=== PATIENT | female | born 1980 | race American Indian/Alaskan Native ===

== ENCOUNTER 2020-11-30 12:58 | Emergency (ER) | payer OTHER ==
[2020-11-30 14:18] VITALS: BP 130/82
--- NOTE | 2020-11-30 15:22 | XRay Report ---
CHEST 2 VIEWS INDICATION: cough. COMPARISON: None FINDINGS: Support devices: None. Heart: Within normal limits. Lungs/pleura: No acute air space or interstitial disease. No pneumothorax. Additional findings: None. IMPRESSION: No acute findings. Signer Name: Gomez Kamara Jr, MD Signed: 11/30/2020 3:18 PM Workstation Name: [id number]
--- NOTE | 2020-11-30 15:34 | Emergency Department Report ---
Upper Respiratory HPI - HPI Chief Complaint: Upper Respiratory Infection Stated Complaint: COUGH/FLU LIKE SX Time Seen by Provider: 11/30/20 14:34 Duration: 3 Days URI Symptoms: Rhinorrhea: Yes, Sore Throat: No, Ear Pain: No, Cough: Yes, Shortness of Breath: No, Sick Contacts: No, Unable to Take Fluids: No, Urine Output Abnormal: No, Listless Behavior: No Other History: This is a 40-year-old female nontoxic, well nourished in appearance, no acute signs of distress presents to the ED with c/o of productive cough, body aches, rhinorrhea, nasal congestion x3 days. Patient describes productive cough as yellow mucus production. Patient denies any sick contacts. Patient denies any recent travels, long car, recent hospital stays. Patient denies any calf pain or calf tenderness. Patient denies any chest pain, short of breath, fever, chills, nausea, vomiting, hemoptysis, numbness, tingling, headache or stiff neck. Patient stated allergies to codeine and acetaminophen. - Home Meds and Allergies Home Medications: Previous Rx's Medication Instructions Recorded Last Taken Type Benzonatate [Tessalon Perles] 100 mg PO Q12H PRN #12 capsule 11/30/20 Unknown Rx Allergies/Adverse Reactions: Allergies Allergy/AdvReac Type Severity Reaction Status Date / Time acetaminophen Allergy Itching Verified 11/30/20 14:15 [From Tylenol-Codeine #3] codeine Allergy Itching Verified 11/30/20 14:15 [From Tylenol-Codeine #3] ED Review of Systems ROS: Stated complaint: COUGH/FLU LIKE SX Other details as noted in HPI Comment: All other systems reviewed and negative Constitutional: denies: chills, fever Eyes: denies: eye pain, eye discharge, vision change ENT: congestion. denies: ear pain, throat pain Respiratory: cough. denies: shortness of breath, wheezing Cardiovascular: denies: chest pain, palpitations Endocrine: no symptoms reported Gastrointestinal: denies: abdominal pain, nausea, diarrhea Genitourinary: denies: urgency, dysuria, discharge Musculoskeletal: denies: back pain, joint swelling, arthralgia Skin: denies: rash, lesions Neurological: denies: headache, weakness, paresthesias Psychiatric: denies: anxiety, depression Hematological/Lymphatic: denies: easy bleeding, easy bruising ED Past Medical Hx - Past Medical History Hx Hypertension: Yes Hx Congestive Heart Failure: Yes - Surgical History Hx Cholecystectomy: Yes Additional Surgical History: CYST ON OVARY - Medications Home Medications: Home Medications Medication Instructions Recorded Confirmed Last Taken Type Benzonatate [Tessalon Perles] 100 mg PO Q12H PRN #12 capsule 11/30/20 Unknown Rx ED Bronchiolitis Physical Exam - Exam General: Vital signs noted. No distress. Alert and acting appropriately. Neurologic: Alert and oriented, no deficits. Musculoskeletal: Unremarkable. ED Bronchiolitis Tests - Testing Testing: CXR: Normal/Negative ED Physical Exam - General Limitations: No Limitations General appearance: alert, in no apparent distress - Head Head exam: Present: atraumatic, normocephalic - Eye Eye exam: Present: normal appearance - Neck Neck exam: Present: normal inspection, full ROM. Absent: tenderness, meningismus, lymphadenopathy - Respiratory Respiratory exam: Present: normal lung sounds bilaterally. Absent: respiratory distress, wheezes, rales, rhonchi, stridor, chest wall tenderness, accessory muscle use, decreased breath sounds, prolonged expiratory - Cardiovascular Cardiovascular Exam: Present: regular rate, normal rhythm, normal heart sounds. Absent: bradycardia, tachycardia, irregular rhythm, systolic murmur, diastolic murmur, rubs, gallop - GI/Abdominal GI/Abdominal exam: Present: soft. Absent: distended, tenderness - Extremities Exam Extremities exam: Present: full ROM - Back Exam Back exam: Present: full ROM - Neurological Exam Neurological exam: Present: alert, oriented X3, normal gait - Psychiatric Psychiatric exam: Present: normal affect, normal mood - Skin Skin exam: Present: warm, dry, intact, normal color. Absent: rash ED Course Vital Signs 11/30/20 14:16 Temperature 98.1 F Pulse Rate 89 Respiratory 20 Rate Blood Pressure 130/82 [Right] O2 Sat by Pulse 98 Oximetry - Reevaluation(s) Reevaluation #1: 11/30/20 15:28 Patient is speaking in full sentences with no signs of distress noted. ED Medical Decision Making - Radiology Data Referring Physician: PETRA EDUARDO Patient Name: MARLI AC Date of : 1995-06-18 Sex: Female Report Date: 2020-11-30 Report Status: Finalized [facility] [address] [place] [address] Ultrasound Report Signed Patient: MARLI AC MR #: [id number] : 06/18/1995 Acct:[id number] Age/Sex: 25 / F ADM Date: 11/30/20 Loc: ED Attending Dr: Ordering Physician: PETRA EDUARDO NP Date of Service: 11/30/20 Procedure(s): US OB >= 14 weeks Fetus Accession Number(s): [id number] cc: PETRA EDUARDO NP ULTRASOUND OBSTETRIC REASON FOR EXAM: vaginal bleeding with pelvic pain TECHNIQUE: Transabdominal and transvaginal ultrasound was performed to evaluate a first trimester . COMPARISON: None available. FINDINGS: FINDINGS: The pole, yolk sac, and gestational sac are normal in appearance. Maud-rump length: 36.6 mm. This corresponds with a gestational age of 10 weeks 4 days. heart rate: 179 bpm Perigestational hemorrhage: There is perigestational hemorrhage involving less than half the circumference of the gestational sac. This measures 3.3 x 1.6 cm. MATERNAL FINDINGS: The uterus measures 13.4 x 8.0 x 8.2 cm. The right ovary demonstrates a normal sonographic appearance. The left ovary demonstrates a normal sonographic appearance. Cul-de-sac: There is no free fluid. IMPRESSION: Viable intrauterine . Gestational age is 10 weeks 4 days by ultrasound. Recommend clinical screening and ultrasound follow-up in the second trimester to screen for anomalies. There is a small perigestational hemorrhage which may account for vaginal bleeding. Signer Name: Sheree Lucas MD Signed: 11/30/2020 1:06 PM Workstation Name: [id number] Transcribed By: NORBERT Dictated By: SHEREE LUCAS MD Electronically Authenticated By: SHEREE LUCAS MD Signed Date/Time: 11/30/20 1306 DD/ 1244 TD/TT: - Medical Decision Making This is a 40-year-old female that presents with viral bronchitis with possible suspected Covid. Patient is stable and was examined by me. Chest x-ray has been obtained and dictated by radiologist with normal exam. Patient is notified of x-ray results with no questions noted. Patient does meet clinical concerns of COVID-19 and patient was instructed and educated on signs and symptoms and to self quarantine and seek medical attention as soon as possible if symptoms worsen. Patient was instructed to increase hydration, rest and take Motrin for fever episodes. Vitals stable. Patient is nonfebrile and normal heart rate. Patient was instructed Follow-up with a primary care doctor in 3-5 days or if symptoms worsen and continue return to emergency room as soon as possible. At time time of discharge, the patient does not seem toxic or ill in appearance. No acute signs of distress noted. Patient agrees to discharge treatment plan of care. No further questions noted by the patient.nt. Critical care attestation.: If time is entered above; I have spent that time in minutes in the direct care of this critically ill patient, excluding procedure time. ED Disposition Clinical Impression: Viral bronchitis, Suspected COVID-19 virus infection Disposition: - TO HOME OR SELFCARE Is pt being admited?: No Does the pt Need Aspirin: No Condition: Stable Instructions: Chronic Bronchitis (ED), Acute Bronchitis, Adult, [id number], COVID-19 Frequently Asked Questions, COVID-19 Additional Instructions: Follow-up with a primary care doctor in 3-5 days or if symptoms worsen and continue return to emergency room as soon as possible. As educated and instructed to you must self quarantine yourself and people that you have been in close contact with similar symptoms for the next 14 days. Please see your nearest health department or primary care doctor that you are referred to for COVID testing. Increased rest and hydration. Prescriptions: Benzonatate [Tessalon Perles] 100 mg PO Q12H PRN #12 capsule PRN Reason: Cough Referrals: PRIMARY CARE, [Referring] - 3-5 Days ELY HENRIQUEZ MD [Staff Physician] - 3-5 Days Time of Disposition: 15:37
== END 2020-11-30 16:51 | disposition home or self-care (01) ==
LOC: ED 12:58
DX: J20.8 Acute bronchitis due to other specified organisms (principal); Z20.822 Contact with and (suspected) exposure to COVID-19; I10 Essential (primary) hypertension; Z90.49 Acquired absence of other specified parts of digestive tract; Z79.899 Other long term (current) drug therapy; Z88.8 Allergy status to other drugs, medicaments and biological substances
CPT/HCPCS: 71046; 99283

== ENCOUNTER 2021-01-10 22:20 | Emergency (ER) | payer OTHER ==
[2021-01-10] MEDS ORDERED: IBUPROFEN 600 MG TAB PO ONE (23:11)
[2021-01-10] MEDS ORDERED: BUTALB/ACETAMINOPHEN/CAFFEINE TAB PO ONE (23:11)
--- NOTE | 2021-01-11 00:33 | Cat Scan Report ---
CT HEAD WITHOUT CONTRAST INDICATION: headache, dizziness. TECHNIQUE: All CT scans at this location are performed using CT dose reduction for ALARA by means of automated e xposure control. COMPARISON: None available. FINDINGS: HEMORRHAGE: None. EXTRA-AXIAL SPACES: Normal in size and morphology for the patient's age. VENTRICULAR SYSTEM: Normal in size and morphology for the patient's age. BRAIN PARENCHYMA: No acute findings. MIDLINE SHIFT OR HERNIATION: None. ORBITS: Normal as visualized. SOFT TISSUES OF HEAD: Normal. CALVARIUM: Normal. VISUALIZED PARANASAL SINUSES AND MASTOID AIR CELLS: Clear. ADDITIONAL FINDINGS: None. IMPRESSION: 1. No acute intracranial abnormality. Signer Name: Jose Maria Rossi MD Signed: 01/11/2021 12:29 AM Workstation Name: [id number]
[2021-01-11 00:41] VITALS: BP 135/83
[2021-01-11] MEDS ORDERED: BUTALB/ACETAMINOPHEN/CAFFEINE TAB PO ONE (00:45)
[2021-01-11] MEDS ORDERED: IBUPROFEN 600 MG TAB PO ONE (00:45)
[2021-01-11 00:51] LABS: Basophils % (Auto) 0.6 % (0.0-1.8); Eosinophils # (Auto) 0.2 K/mm3 (0.0-0.4); Eosinophils % (Auto) 2.7 % (0.0-4.3); Hematocrit 40.7 % (30.3-42.9); Lymphocytes # (Auto) 3.6 K/mm3 (1.2-5.4); Lymphocytes % (Auto) 44.2 % (13.4-35.0); Mean Corpuscular HGB Conc 34 % (30-34); Mean Corpuscular Volume 93 fl (79-97); Monocytes # (Auto) 0.6 K/mm3 (0.0-0.8); Monocytes % (Auto) 7.2 % (0.0-7.3); Platelet Count 245 K/mm3 (140-440); Red Blood Count 4.39 M/mm3 (3.65-5.03); Red Cell Distribution Width 14.2 % (13.2-15.2)
[2021-01-11 01:20] LABS: Alanine Aminotransferase 17 units/L (7-56); Albumin 4.5 g/dL (3.9-5); BUN/Creatinine Ratio 14; Blood Urea Nitrogen 11 mg/dL (7-17); Hemolysis Index 10
[2021-01-11 01:26] LABS: Erythrocyte Sedimentation Rate 6 mm/Hr (0-20)
--- NOTE | 2021-01-11 02:16 | Emergency Department Report ---
ED Headache HPI - General Chief Complaint: Headache Stated Complaint: BLURRY VISION Source: patient Exam Limitations: no limitations - History of Present Illness Initial Comments: Patient is a 40-year-old -Prydeinig female with history of hypertension and CHF who presents to the ED with complaint of acute onset persistent severe right frontal and retro-orbital headache radiating to the right temporal area with blurry vision and lightheadedness for the last 1 week, worse in the last 2 days. Patient states that she suspected that maybe her blood pressure may have been elevated. Patient states that the pain is pressure-like, sharp and constant. Patient denies dizziness, syncope, seizures, chest pain, shortness of breath, neck pain, traumatic injury, fall, fever or chills, numbness and tin gling of the face, vision loss, neck pain, sore throat, nasal and sinus congestion, nausea and vomiting. Timing/Duration: 1 week Quality: severe Head Injury Location: frontal (right retro-orbital ), temporal (right) Recent Head Trauma: no recent headache/trauma Associated Symptoms: denies symptoms, sinus infection, vision changes (blurry). denies: confusion, fatigue, facial pain, fever/chills, flushing, loss of consciousness, nausea/vomiting, nasal congestion, nasal drainage, numbness in legs/feet, seizures, stiff neck Allergies/Adverse Reactions: Allergies acetaminophen [From Tylenol-Codeine #3] Allergy (Verified 11/30/20 14:15) Itching codeine [From Tylenol-Codeine #3] Allergy (Verified 11/30/20 14:15) Itching metformin Allergy (Verified 01/11/21 00:47) Vomiting Home Medications: Ambulatory Orders Benzonatate [Tessalon Perles] 100 mg PO Q12H PRN #12 capsule 11/30/20 Butalb/Acetamin/Caff 50-325-40 [Fioricet 50-325-40] 1 - 2 tab PO Q6HR PRN #15 tab 01/11/21 Ibuprofen [Motrin] 800 mg PO Q8HR PRN #30 tablet 01/11/21 Ondansetron [Zofran Odt] 4 mg PO Q6HR PRN #15 tab.rapdis 01/11/21 ED Review of Systems ROS: Stated complaint: BLURRY VISION Other details as noted in HPI Constitutional: denies: chills, fever Eyes: denies: eye pain, eye discharge, vision change ENT: other (Right frontal sinus tenderness and pressure). denies: ear pain, throat pain Respiratory: denies: cough, shortness of breath, wheezing Cardiovascular: denies: chest pain, palpitations Endocrine: no symptoms reported Gastrointestinal: denies: abdominal pain, nausea, vomiting, diarrhea Genitourinary: denies: urgency, dysuria, discharge Musculoskeletal: denies: back pain, joint swelling, arthralgia Skin: denies: rash, lesions Neurological: headache. denies: weakness, paresthesias Psychiatric: denies: anxiety, depression Hematological/Lymphatic: denies: easy bleeding, easy bruising ED Past Medical Hx - Past Medical History Previous Medical History?: Yes Hx Hypertension: Yes Hx Congestive Heart Failure: Yes - Surgical History Past Surgical History?: Yes Hx Cholecystectomy: Yes Additional Surgical History: CYST ON OVARY - Medications Home Medications: Home Medications Medication Instructions Recorded Confirmed Last Taken Type Benzonatate [Tessalon Perles] 100 mg PO Q12H PRN #12 capsule 11/30/20 Unknown Rx Butalb/Acetamin/Caff 50-325-40 1 - 2 tab PO Q6HR PRN #15 tab 01/11/21 Unknown Rx [Fioricet 50-325-40] Ibuprofen [Motrin] 800 mg PO Q8HR PRN #30 tablet 01/11/21 Unknown Rx Ondansetron [Zofran Odt] 4 mg PO Q6HR PRN #15 tab.rapdis 01/11/21 Unknown Rx ED Physical Exam - General Limitations: No Limitations General appearance: alert, in no apparent distress - Head Head exam: Present: atraumatic, normocephalic, normal inspection - Eye Eye exam: Present: normal appearance, PERRL, EOMI Pupils: Present: normal accommodation - ENT ENT exam: Present: normal orophraynx, mucous membranes moist, TM's normal bilaterally, normal external ear exam, other (Palpable right frontal and right temporal scalp tenderness) - Neck Neck exam: Present: normal inspection, full ROM - Respiratory Respiratory exam: Present: normal lung sounds bilaterally. Absent: respiratory distress, wheezes, rales, rhonchi, stridor, chest wall tenderness, accessory muscle use, prolonged expiratory - Cardiovascular Cardiovascular Exam: Present: regular rate, normal rhythm, normal heart sounds. Absent: systolic murmur, diastolic murmur, rubs, gallop - GI/Abdominal GI/Abdominal exam: Present: soft, normal bowel sounds. Absent: tenderness, guarding, rebound, hyperactive bowel sounds, hypoactive bowel sounds, organomegaly - Extremities Exam Extremities exam: Present: normal inspection, full ROM, normal capillary refill - Back Exam Back exam: Present: normal inspection, full ROM. Absent: tenderness, CVA tenderness (R), CVA tenderness (L), muscle spasm, paraspinal tenderness, vertebral tenderness - Neurological Exam Neurological exam: Present: alert, oriented X3, CN II-XII intact, normal gait, reflexes normal - Psychiatric Psychiatric exam: Present: normal affect, normal mood - Skin Skin exam: Present: warm, dry, intact, normal color. Absent: rash ED Course Vital Signs 01/11/21 01/11/21 00:39 00:55 Temperature 98.2 F Pulse Rate 61 Respiratory 17 20 Rate Blood Pressure 135/83 O2 Sat by Pulse 96 Oximetry ED Medical Decision Making - Lab Data Result diagrams: 01/10/21 23:39 01/10/21 23:39 - Radiology Data Radiology results: report reviewed, [place] [id number] Cat Scan Report Signed Patient: JOSE OGLESBY MR #: [id number] : 1980 Acct:[id number] Age/Sex: 40 / F ADM Date: 01/10/21 Loc: ED Attending Dr: Ordering Physician: JENNIFFER RODRIGUES Date of Service: 01/10/21 Procedure(s): CT head/brain wo con Accession Number(s): [id number] cc: JENNIFFER RODRIGUES CT HEAD WITHOUT CONTRAST INDICATION: headache, dizziness. TECHNIQUE: All CT scans at this location are performed using CT dose reduction for ALARA by means of automated exposure control. COMPARISON: None available. FINDINGS: HEMORRHAGE: None. EXTRA-AXIAL SPACES: Normal in size and morphology for the patient's age. VENTRICULAR SYSTEM: Normal in size and morphology for the patient's age. BRAIN PARENCHYMA: No acute findings. MIDLINE SHIFT OR HERNIATION: None. ORBITS: Normal as visualized. SOFT TISSUES OF HEAD: Normal. CALVARIUM: Normal. VISUALIZED PARANASAL SINUSES AND MASTOID AIR CELLS: Clear. ADDITIONAL FINDINGS: None. IMPRESSION: 1. No acute intracranial abnormality. Signer Name: Jose Maria Rossi MD Signed: 01/11/2021 12:29 AM Workstation Name: [id number] Transcribed By: MASTER Dictated By: Jose Maria Rossi MD Electronically Authenticated By: Jose Maria Rossi MD Signed Date/Time: 01/11/2128 DD/ TD/TT: - Medical Decision Making This is a 40-year-old -Prydeinig female with history of hypertension and CHF who presents to the ED with complaint of acute onset persistent severe right frontal and retro-orbital headache radiating to the right temporal area with blurry vision and lightheadedness for the last 1 week, worse in the last 2 days. Patient states that she suspected that maybe her blood pressure may have been elevated. Patient states that the pain is pressure-like, sharp and constant. In the ED, patient is alert and oriented x3 and is not in any distress but anxious and is hemodynamically stable. Head CT scan without contrast showed no acute intracranial abnormalities or hemorrhage. Lab test results were reviewed and are all nonactionable. Patient was treated for headache and on reevaluation, patient's pain is well controlled medication. Patient will discharge home on pain medications and advised to follow-up with her primary care physician in 5 3 to 5 days for reevaluation or return to the ED immediately if symptoms get worse. - Differential Diagnosis Sinusitis; tension headache; cluster headache; GCA; migraine headache Critical care attestation.: If time is entered above; I have spent that time in minutes in the direct care of this critically ill patient, excluding procedure time. ED Disposition Clinical Impression: Migraine headache without aura Qualifiers: Status migrainosus presence: without status migrainosus Intractability: not intractable Qualified Code(s): G43.009 - Migraine without aura, not intractable, without status migrainosus Disposition: -01 TO HOME OR SELFCARE Is pt being admited?: No Does the pt Need Aspirin: No Condition: Stable Instructions: Migraine Headache, Qyry-pa-Cahi Additional Instructions: All lab test results were reviewed and are all nonactionable. The head CT scan without contrast showed no acute intracranial abnormalities or hemorrhage. Therefore your symptoms are likely due to migraine headache without aura or tension type headache. Therefore take medications with food, drink plenty of fluids and follow-up with your primary care physician in 7 to 10 days for reev aluation. Return to the ED immediately if symptoms get worse. Prescriptions: Butalb/Acetamin/Caff 50-325-40 [Fioricet 50-325-40] 1 - 2 tab PO Q6HR PRN #15 tab PRN Reason: Headache Ibuprofen [Motrin] 800 mg PO Q8HR PRN #30 tablet PRN Reason: Pain , Severe (7-10) Ondansetron [Zofran Odt] 4 mg PO Q6HR PRN #15 tab.rapdis PRN Reason: Nausea Referrals: ELY HENRIQUEZ MD [Staff Physician] - 3-5 Days Forms: Work/School Release Form(ED) Time of Disposition: 02:19 Print Language: MAURITIAN
== END 2021-01-11 02:30 | disposition home or self-care (01) ==
LOC: ED 22:20
DX: G43.009 Migraine without aura, not intractable, without status migrainosus (principal); I11.0 Hypertensive heart disease with heart failure; I50.9 Heart failure, unspecified; Z90.49 Acquired absence of other specified parts of digestive tract; Z79.899 Other long term (current) drug therapy; Z88.6 Allergy status to analgesic agent; Z88.8 Allergy status to other drugs, medicaments and biological substances; Z98.890 Other specified postprocedural states
CPT/HCPCS: 36415; 70450; 80053; 85025; 85652

== ENCOUNTER 2022-02-17 08:19 | Emergency (ER) | payer SELFPAY ==
[2022-02-17] MEDS ORDERED: KETOROLAC 10 MG TAB PO ONE (11:57)
[2022-02-17 12:38] VITALS: BP 118/67
--- NOTE | 2022-02-17 14:21 | Vascular Lab Report ---
DUPLEX DOPPLER UPPER EXTREMITY VENOUS, LEFT INDICATION / CLINICAL INFORMATION: pain and swelling. TECHNIQUE: Duplex doppler imaging was performed through the veins of the left upper extremity using v enous compression and other maneuvers. COMPARISON: None available. FINDINGS: LEFT INTERNAL JUGULAR VEIN: Negative. LEFT SUBCLAVIAN VEIN: Negative. LEFT AXILLARY VEIN: Negative. LEFT BRACHIAL VEIN: Negative. LEFT FOREARM VEINS: Negative. LEFT BASILIC VEIN (SUPERFICIAL): Negative. ADDITIONAL FINDINGS: None. IMPRESSION: 1. No sonographic evidence for DVT. Signer Name: Justino Velazquez MD Signed: 02/17/2022 2:16 PM Workstation Name: [id number]
--- NOTE | 2022-02-17 14:41 | Emergency Department Report ---
Upper Extremity - HPI Chief Complaint: Extremity Problem,Nontraumatic Stated Complaint: LEFT ARM PAIN Time Seen by Provider: 02/17/22 11:48 Upper Extremity: Left Elbow, Left Forearm Occurred When: >5 Days Mechanism: Other Severity: severe Symptoms: Yes Pain with Movement, Yes Numbness, No Deformity, No Limited Range of Movement, No Weakness, No Swelling, No Bruising/Ecchymosis, No Laceration or Abrasion Other History: 41-year-old black female with a past medical history of hypertension and CHF presents to the emergency department for evaluation of left elbow pain. She states that she has had left elbow pain intermittently for the last 3 months that has been significantly worse over the past few days. She denies any injury or trauma and states that she has intermittent numbness in her fingers also. She states that she is also has intermittent chest pain but denies chest pain at this time. She denies shortness of breath and hemoptysis. She states that she is concerned for DVT because her first cousin recently secondary to DVT in her arm. ED Review of Systems ROS: Stated complaint: LEFT ARM PAIN Other details as noted in HPI Comment: All other systems reviewed and negative Constitutional: denies: chills Respiratory: denies: cough, shortness of breath Cardiovascular: denies: chest pain Gastrointestinal: denies: abdominal pain Musculoskeletal: denies: back pain Neurological: denies: headache, weakness ED Past Medical Hx - Past Medical History Hx Hypertension: Yes Hx Congestive Heart Failure: Yes - Surgical History Hx Cholecystectomy: Yes Additional Surgical History: CYST ON OVARY - Medications Home Medications: Home Medications Medication Instructions Recorded Confirmed Last Taken Type Benzonatate [Tessalon Perles] 100 mg PO Q12H PRN #12 capsule 11/30/20 02/17/22 Unknown Rx Butalb/Acetamin/Caff 50-325-40 1 - 2 tab PO Q6HR PRN #15 tab 01/11/21 02/17/22 Unknown Rx [Fioricet 50-325-40] Ibuprofen [Motrin] 800 mg PO Q8HR PRN #30 tablet 01/11/21 02/17/22 Unknown Rx Ondansetron [Zofran Odt] 4 mg PO Q6HR PRN #15 tab.rapdis 01/11/21 02/17/22 Unknown Rx Naproxen [Naprosyn] 500 mg PO BID #14 tab 02/17/22 Unknown Rx Upper Extremity Exam - Exam General: Vital signs noted. No distress. Alert and acting appropriately. Head and Torso: No HEENT Abnormality, No Neck Tenderness, No Chest/Lungs Abnormality, No Abdominal Tenderness, No Back Tenderness Shoulder Exam: Yes Normal Range of Motion in Shoulder, No Shoulder Tenderness, No Clavicle Tenderness, No Shoulder Deformity, No AC Joint Tenderness Arm Exam: No Arm/Humerus Tenderness, No Arm Deformity Elbow: Yes Elbow Tenderness, Yes Normal Range of Motion in Elbow, No Elbow Deformity Forearm: Yes Forearm Tenderness, No Forearm Deformity (Intermittently), No Pain with Pronation, No Pain with Supination Wrist: Yes Normal ROM in Wrist, No Wrist Tenderness, No Wrist Deformity, No S nuffbox Tenderness, No Pain with Axial Thumb Compression Hand: Yes Normal ROM in Digit(s), No Hand Tenderness, No Hand Deformity, No Digit Tenderness, No Digit(s) Deformity, No Tendon Dysfunction CMS Exam: Yes Normal Distal Pulses, Yes Normal Capillary Refill, Yes Normal Distal Sensation, No Broken Skin Front/Back of Body, Lg (Color): 1 - Tenderness ED Course Vital Signs 02/17/22 02/17/22 08:48 12:37 Temperature 97.8 F 98.4 F Pulse Rate 70 71 Respiratory 18 20 Rate Blood Pressure 134/86 Blood Pressure 118/67 [Right] O2 Sat by Pulse 99 99 Oximetry ED Medical Decision Making - Radiology Data Radiology results: report reviewed, image reviewed Left upper extremity venous Doppler: FINDINGS: LEFT INTERNAL JUGULAR VEIN: Negative. LEFT SUBCLAVIAN VEIN: Negative. LEFT AXILLARY VEIN: Negative. LEFT BRACHIAL VEIN: Negative. LEFT FOREARM VEINS: Negative. LEFT BASILIC VEIN (SUPERFICIAL): Negative. ADDITIONAL FINDINGS: None. IMPRESSION: 1. No sonographic evidence for DVT. - Medical Decision Making 41-year-old black female with a past medical history of hypertension and CHF presents to the emergency department for evaluation of left elbow pain. She states that she has had left elbow pain intermittently for the last 3 months that has been significantly worse over the past few days. She denies any injury or trauma and states that she has intermittent numbness in her fingers also. She states that she is also has intermittent chest pain but denies chest pain at this time. She denies shortness of breath and hemoptysis. She states that she is concerned for DVT because her first cousin recently secondary to DVT in her arm. Left upper extremity venous Doppler negative for DVT. Pain improved with Toradol. Patient will be discharged home with treatment for musculoskeletal pain with naproxen 500 mg twice daily for 7 days. She is advised to take medications as prescribed, follow-up with her primary care provider if worsening symptoms, return to the emergency department for any concerning symptoms. She verbalizes understanding of and agreement with plan of care. Critical care attestation.: If time is entered above; I have spent that time in minutes in the direct care of this critically ill patient, excluding procedure time. ED Disposition Clinical Impression: Left arm pain Disposition: 01 HOME / SELF CARE / HOMELESS Is pt being admited?: No Does the pt Need Aspirin: No Condition: Stable Instructions: Musculoskeletal Pain Additional Instructions: Take medication as prescribed. Follow-up with primary care provider if worsening symptoms. Return to the emergency department as needed. Prescriptions: Naproxen [Naprosyn] 500 mg PO BID #14 tab Referrals: ELY HENRIQUEZ MD [Primary Care Provider] - 3-5 Days Forms: Work/School Release Form(ED) Time of Disposition: 14:42
== END 2022-02-17 15:03 | disposition home or self-care (01) ==
LOC: ED 08:19
DX: M79.602 Pain in left arm (principal); I11.0 Hypertensive heart disease with heart failure; I50.9 Heart failure, unspecified; Z90.49 Acquired absence of other specified parts of digestive tract; Z79.899 Other long term (current) drug therapy
CPT/HCPCS: 99283